=== PATIENT | male | born 2000 | race Asian ===

== ENCOUNTER 2022-09-29 10:09 | Emergency (ER) | payer OTHER ==
[2022-09-29] MEDS ORDERED: LIDOCAINE PATCH 5% TOP STA (10:42)
--- NOTE | 2022-09-29 10:43 | ED Physician Documentation ---
PD HPI NECK PAIN - Stated complaint Stated Complaint: NECK/SHOULDER PX - Chief complaint Chief Complaint: General - History obtained from History obtained from: Patient - Additional information Additional information: Patient is a 22-year-old male presenting for evaluation of right neck pain that has been present for 1 week. Patient states that he woke up with the pain on Saturday. He has tried ibuprofen 400 mg once or twice a day without any significant improvement. He thought it would get better on its own but it has not. He denies any trauma or injury. He denies fevers, chest pain, shortness of air. He is not diabetic. He does not take a blood thinner.He does regularly lift weights at the gym but denies doing this for the past week. He denies any specific mechanism prior to the onset of pain. Review of Systems Constitutional: denies: Fever Cardiac: denies: Chest pain / pressure Respiratory: denies: Dyspnea GI: denies: Abdominal Pain Musculoskeletal: reports: Neck pain Neurologic: denies: Headache PD PAST MEDICAL HISTORY - Present Medications Home Medications: Ambulatory Orders Medication Instructions Recorded Confirmed Cyclobenzaprine [Flexeril] 10 mg PO TID PRN #20 tablet 09/29/22 Lidocaine Patch 5% [Lidoderm Patch] 1 patch TOP DAILY PRN #10 patch 09/29/22 - Allergies Allergies/Adverse Reactions: Allergies Allergy/AdvReac Type Severity Reaction Status Date / Time No Known Drug Allergies Allergy Verified 09/29/22 10:15 PD ED PE NORMAL - General General: Alert and oriented X 3, No acute distress, Well developed/nourished - HEENT HEENT: Atraumatic, Moist mucous membranes, Pharynx benign - Neck Neck: Supple, no meningeal sign - Cardiac Cardiac: RRR, Strong equal pulses - Respiratory Respiratory: No respiratory distress, Clear bilaterally - Abdomen Abdomen: Soft - Back Back: No spinal TTP - Extremities Extremities: Other (Normal strength with shoulder extension, arm flexion and extension, wrist extension and hand grasp) - Neuro Neuro: Alert and oriented X 3, No motor deficit, No sensory deficit, Normal speech PD ED PE EXPANDED - HEENT HEENT Visual: 1 - tenderness (spasm) Results - Vitals Vitals: Vital Signs - 24 hr 09/29/22 09/29/22 10:13 10:53 Temperature 35.9 C L 36.8 C Heart Rate 69 70 Respiratory 16 16 Rate Blood Pressure 148/85 H 130/88 H O2 Saturation 100 95 Oxygen O2 Source Room air PD Medical Decision Making - ED course ED course: Patient is a 22-year-old male presenting for evaluation of neck pain. No known injury or trauma. No midline tenderness. No signs of meningitis or subarachnoid hemorrhage. Normal neuro exam. Distal pulses intact. Patient does have visible muscle spasm over right neck musculature. Discussed options for treatment which include anti-inflammatories, lidocaine patch and muscle relaxer which she is agreeable to. Patient counseled on need for close follow- up as well as concerning symptoms to return for. Departure - Departure Disposition: 01 Home, Self Care Clinical Impression: Neck muscle spasm Condition: Stable Instructions: ED Spasm Neck No Injury [facility] [place] [facility]] Prescriptions: Cyclobenzaprine [Flexeril] 10 mg PO TID PRN #20 tablet PRN Reason: Spasms Lidocaine Patch 5% [Lidoderm Patch] 1 patch TOP DAILY PRN #10 patch PRN Reason: pain Comments: You appear to be having a spasm of the muscles in your neck causing your pain and discomfort. I am sending prescriptions to [facility] in [place] to help you with your symptoms. One of the medications is a muscle relaxer which can be sedating. Please do not drive or operate any machinery while taking this medication. I would recommend [facility] Return to the ER if you develop any new or worsening symptoms. Forms: PCP List Discharge Date/Time: 09/29/22 11:05
[2022-09-29 10:57] VITALS: BP 130/88; O2SAT 95
== END 2022-09-29 11:05 | disposition home or self-care (01) ==
LOC: ED 10:09
DX: M62.838 Other muscle spasm (principal)
CPT/HCPCS: 99282; 99283; A9270

== ENCOUNTER 2022-10-01 15:11 | Outpatient (CLI) | payer OTHER ==
--- NOTE | 2022-10-01 16:20 | XRAY Report ---
PROCEDURE: Cervical Spine 2 View INDICATIONS: CERVICAL STRAIN,WITH RADICULOPATHY TECHNIQUE: 4 view(s) of the cervical spine were acquired. COMPARISON: None. FINDINGS: Bones: Normal C1 on C2 alignment on the odontoid view. There is straightening of normal cervical lord osis. No transient subluxation or acute vertebral body height loss. Lateral view is seen at the C6 Soft tissues: No pathologic prevertebral soft tissue swelling. IMPRESSION: No high-grade degenerative changes, traumatic subluxation, or acute vertebral body height loss up to C6. Straightening of normal cervical lordosis is present. If there is high concern for further derang ement, consider MRI evaluation. Reviewed by: Kang Robison MD on 10/01/2022 4:19 PM PDT Approved by: Kang Robison MD on 10/01/2022 4:19 PM PDT Station ID: [id number]
== END 2022-10-01 15:12 | disposition home or self-care (01) ==
LOC: DI 15:11
PROVIDERS: ATTEND Registered Nurse
DX: M54.12 Radiculopathy, cervical region (principal)